=== PATIENT | female | born 1985 | race Caucasian/White ===

== ENCOUNTER 2016-10-30 12:41 | Emergency (ER) | payer OTHER ==
[2016-10-30 12:05] LABS: INFLUENZA A NEG (NEG); INFLUENZA B NEG (NEG)
[~2016-10-30 12:41] MED LIST: AMOXICILLIN500 M1 PO; ORUDIS75 M1 PO; ROBITUSSIN A-C S5 ML PO; TUSSIN400 MG PO; ZYRTEC PO
== END 2016-10-30 13:10 | disposition home or self-care (01) ==
LOC: CED 12:41
PROVIDERS: Emergency Medicine
DX: J02.9 Acute pharyngitis, unspecified (principal); H66.93 Otitis media, unspecified, bilateral; J45.909 Unspecified asthma, uncomplicated; Z88.6 Allergy status to analgesic agent
CPT/HCPCS: 87651; 87804; 99282

== ENCOUNTER 2017-02-13 13:34 | Emergency (ER) | payer OTHER ==
[~2017-02-13] VITALS: Ht 170.2 cm; Wt 86.2 kg
[2017-02-13 14:46] LABS: URINE SOURCE CLEAN CATCH
[2017-02-13 14:54] LABS: URINE APPEARANCE CLEAR; URINE BILIRUBIN NEG (NEG); URINE BLOOD NEG (NEG); URINE COLOR YELLOW; URINE GLUCOSE NORM (NORM); URINE KETONE NEG (NEG); URINE LEUKOCYTE ESTERASE NEG (NEG); URINE NITRATE NEG (NEG); URINE PROTEIN NEG (NEG); URINE UROBILINOGEN NORM (NORM)
[2017-02-13 14:56] LABS: CULTURE INDICATED? NO
[2017-02-17 15:36] LABS: CHLAMYDIA TRACH Not Detected (Not Detected); N GONOR Not Detected (Not Detected)
== END 2017-02-13 16:15 | disposition home or self-care (01) ==
LOC: CED 13:34 → CFTX 13:34
PROVIDERS: Physician Assistant
DX: N93.9 Abnormal uterine and vaginal bleeding, unspecified (principal); F41.9 Anxiety disorder, unspecified; I12.9 Hypertensive chronic kidney disease with stage 1 through stage 4 chronic kidney disease, or unspecified chronic kidney disease; E11.22 Type 2 diabetes mellitus with diabetic chronic kidney disease; N18.9 Chronic kidney disease, unspecified; Z88.6 Allergy status to analgesic agent; Z79.899 Other long term (current) drug therapy
CPT/HCPCS: 81003; 84702; 84703; 87491; 87591; 87808; 87905; 99284